=== PATIENT | male | born 1985 | race Caucasian/White ===

== ENCOUNTER 2016-05-30 12:51 | Emergency (ER) | payer MEDICAID ==
[2016-05-30] MEDS ORDERED: Ondansetron INJ* 2 MG/ML VIAL IV ONE ×2 (13:10)
[2016-05-30] MEDS ORDERED: Morphine INJ* 4 MG/ML 1 ML SYRINGE IV ONE (13:10)
[2016-05-30] MEDS ORDERED: NS 0.9% 1000 ML*IV.FLUID IV ONE (13:15)
[2016-05-30] MEDS: Morphine INJ* 4 MG/ML 1 ML SYRINGE IV ONE ×2 (13:16→13:56)
--- NOTE | 2016-05-30 13:16 | ED ---
Upper Extremity Pain - HPI Summary HPI Summary: Pt here w/ Rt shoulder dislocation while playing football earlier today - reached arm up to catch ball nad it went out. He has a h/o shoulder dislocations in this arm. Saw an ortho surgeon in the past and was offered surgery but he declined, hoping to get better w/ exercise and time. He has been doing well until today. Denies numbness but has some weakness and pain - feels bone is rubbing into his ribs. - History of Current Complaint Chief Complaint: EDShoulderClavicleInj Stated Complaint: RIGHT SHOULDER INJURY Time Seen by Provider: 05/30/16 13:03 Hx Obtained From: Patient - Allergies/Home Medications Allergies/Adverse Reactions: Allergies Allergy/AdvReac Type Severity Reaction Status Date / Time No Known Allergies Allergy Verified 05/30/16 12:58 PMH/Surg Hx/FS Hx/Imm Hx Previously Healthy: Yes Endocrine/Hematology History: Denies: Hx Blood Disorders, Hx Unexplained Bleeding Musculoskeletal History: Reports: Other Musculoskeletal History - H/o Right shoulder subluxations Infectious Disease History: No Infectious Disease History: Denies: Traveled Outside the [place] in Last 30 Days - Family History Known Family History: Positive: None - Social History 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 Lives: With Family Alcohol Use: Daily Smoking Status (MU): Current Some Day Smoker - occasionally Review of Systems Negative: Chest Pain Negative: Shortness Of Breath Negative: Vomiting, Nausea Positive: no symptoms reported Musculoskeletal: Other - see HPI Negative: Bruising Neurological: Other - see HPI Positive: Anxious All Other Systems Reviewed And Are Negative: Yes Physical Exam Triage Information Reviewed: Yes Vital Signs On Initial Exam: Initial Vitals Temp Pulse Resp BP Pulse Ox 99.0 F 100 18 129/84 98 05/30/16 12:55 05/30/16 12:55 05/30/16 12:55 05/30/16 12:55 05/30/16 12:55 Vital Signs Reviewed: Yes Appearance: Positive: Well-Appearing, Well-Nourished, Pain Distress Skin: Positive: Warm, Dry - no overlying ecchymosis or erythema - no lacerations observed Head/Face: Positive: Normal Head/Face Inspection Eyes: Positive: Normal, EOMI, Conjunctiva Clear ENT: Positive: Hearing grossly normal Respiratory/Lung Sounds: Positive: Breath Sounds Present Cardiovascular: Positive: Normal, Pulses are Symmetrical in both Upper and Lower Extremities Musculoskeletal: Positive: Limited @ - Rt shoulder lateral aspect w/ gapping at below AC joint over deltoid Neurological: Positive: Alert, Oriented to Person Place, Time, CN Intact II-III , Other - sensory intact to touch, can move fingers and wrist but feels "weak" - no elbow movement d/t pain but this area is NTTP Psychiatric: Positive: Anxious - but calm and cooperative Procedures - Joint Reduction Joint Reduction Site: shoulder (R) Conscious Sedation: Yes Reduction Attempts: 1 - pt placed in shoulder immobilizer Pre-Procedure NV Exam: Yes Diagnostics - Vital Signs Vital Signs Temp Pulse Resp BP Pulse Ox 05/30/16 12:55 99.0 F 100 18 129/84 98 - Laboratory Lab Statement: Any lab studies that have been ordered have been reviewed, and results considered in the medical decision making process. Re-Evaluation - Re-Evaluation First Eval Change: Improved Course/Dx - Course Course Of Treatment: Initial attempt of reduction via external rotation of pt's Rt shoulder dislocation w/ morphine on board was unsuccessful. We advanced to concious sedation as he reported this is how he has needed reductions performed in the past. This was successful today. Pt's shoulder immobilized and d/c'd w danger s/sx of when to return. Will f/u w/ ortho. - Diagnoses Provider Diagnoses: Anterior dislocation of right shoulder - Physician Notifications Discussed Care Of Patient With: Dr. Burrows - ordered and supervised concious sedation - assisted in reduction Discharge - Discharge Plan Condition: Stable Disposition: HOME Prescriptions: Ibuprofen TAB* [Motrin TAB* 800 MG] 800 mg PO Q8HR #20 tab oxyCODONE/Acetamin 5/325 MG* [Percocet 5/325 TAB*] 1 tab PO Q6H PRN #12 tab MDD 4 PRN Reason: Pain Patient Education Materials: Shoulder Dislocation (ED) Forms: *Work Release Referrals: Alice Levy MD [Medical Doctor] - Additional Instructions: Your shoulder dislocation was reduced today. Please wear your immobilizer until seen by orthopedics. Call tomorrow to schedule an appointment
--- NOTE | 2016-05-30 13:29 | RAD ---
INDICATION: Right shoulder dislocation. TECHNIQUE: 2 views of the right shoulder were obtained. FINDINGS: There is anterior subcoracoid dislocation of the humeral head. There appears to be a Hill-Sachs fracture present. IMPRESSION: ANTERIOR DISLOCATION OF THE HUMERUS.
[2016-05-30] MEDS ORDERED: Morphine INJ* 4 MG/ML 1 ML SYRINGE ONE ×2 (13:54)
[2016-05-30] MEDS ORDERED: fentaNYL* 50 MCG/ML 2 ML VIAL (100 MCG VIAL) ONE ×2 (14:35)
[2016-05-30] MEDS ORDERED: Naloxone* 0.4 MG/ML 1 ML VIAL ONE (14:35)
[2016-05-30] MEDS ORDERED: Midazolam* 1 MG/ML 10 ML VIAL (10 MG) ONE ×2 (14:36)
[2016-05-30] MEDS ORDERED: Flumazenil* 0.1 MG/ML 5 ML MDV ONE (14:36)
[2016-05-30 15:47] VITALS: BP 132/67
--- NOTE | 2016-05-30 15:48 | RAD ---
INDICATION: Right shoulder dislocation status post external reduction. COMPARISON: Comparison is made with a prior x-ray of the right shoulder of the same day. TECHNIQUE: A single view of the right shoulder was obtained.. FINDINGS: There has been interval reduction of the previously noted anterior dislocation of the humeral head. The bones are in normal alignment. There is a relatively prominent Hill-Sachs fracture. IMPRESSION: STATUS POST EXTERNAL REDUCTION. THE BONES ARE IN NORMAL ALIGNMENT. THERE IS A HILL-SACHS FRACTURE PRESENT.
--- NOTE | 2016-05-30 16:36 | ED ---
Arley Linares Soohyun, scribed for Tomy Burrows MD on 05/30/16 at 1517 . Progress - Progress Note Progress Note: This 30 y/o male presents to ED for anterior dislocation of right shoulder. Moderate sedation was done with Dr. Burrows in presence with timeout at 1448 PM and is well tolerated by patient. Course/Dx - Diagnoses Provider Diagnoses: Anterior dislocation of right shoulder The documentation as recorded by the Arley jaime Soohyun accurately reflects the service I personally performed and the decisions made by Markos vo William, MD.
== END 2016-05-30 15:46 | disposition home or self-care (01) ==
LOC: ED 12:51
DX: S43.004A Unspecified dislocation of right shoulder joint, initial encounter (principal); X50.9XXA Other and unspecified overexertion or strenuous movements or postures, initial encounter; Y93.61 Activity, american tackle football; Y92.9 Unspecified place or not applicable; Z72.0 Tobacco use
CPT/HCPCS: 96374; 96375; 99285; J2250; J2270; J2310; J2405; J3010